=== PATIENT | male | born 2000 | race Caucasian/White ===

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

== ENCOUNTER 2019-05-24 02:19 | Emergency (ER) | payer BC ==
[~2019-05-24] VITALS: Ht 180.3 cm; Wt 82.8 kg
[2019-05-24] MEDS ORDERED: LORazepam 1MG TABLET PO ONE (03:00)
[2019-05-24] MEDS ORDERED: ESCITALOPRAM 10MG TABLET PO ONE (03:00)
--- NOTE | 2019-05-24 03:00 | NUR ---
PT HERE FOR ANXIETY AND HASNT TAKEN HIS ANTIDEPRESSANTS FOR A FEW DAYS. MEDICATION ORDERED FROM PHARMACY. VSS. CALL LIGHT IN REACH
[2019-05-24] MEDS ORDERED: LORazepam 1MG TABLET ONE (03:19)
--- NOTE | 2019-05-24 03:28 | NUR ---
PT MEDICATED. PT APPEARS CALMER AND WANTS TO GO HOME. MD NOTIFIED
[2019-05-24 03:30] VITALS: BP 133/81
--- NOTE | 2019-05-24 03:55 | NUR ---
Patient given discharge instructions and they have confirmed that they understand the instructions. Patient ambulatory with steady gait.
== END 2019-05-24 03:57 | disposition home or self-care (01) ==
LOC: ED 03:53
DX: F32.9 Major depressive disorder, single episode, unspecified (principal); F41.1 Generalized anxiety disorder
CPT/HCPCS: 99284